=== PATIENT | male | born 1965 | race Hispanic/Latino ===

== ENCOUNTER 2025-02-17 17:30 | Emergency (ER) | payer OTHER ==
[~2025-02-17] VITALS: Ht 172.7 cm; Wt 95.0 kg
[2025-02-17] MEDS ORDERED: COZAAR100 MG PO (18:05)
[2025-02-17] MEDS ORDERED: AMLODIPINE BESYL5 MG PO (18:06)
[2025-02-17] MEDS ORDERED: HYDROCHLOROTH12.5 MG PO ×2 (18:08)
[2025-02-17] MEDS ORDERED: METOPROLOL TARTRATE 50 MG TAB PO ONE (19:15)
[2025-02-17 19:50] LABS: BASOPHILS 0.7 % (0.2-1.2); BLOOD/HGB, URINE NEGATIVE (Negative); EOSINOPHILS 4.3 % (0.8-7.0); KETONE, URINE SMALL (Negative); LEUK ESTERASE, URINE NEGATIVE (negative); LYMPHOCYTES 26.2 % (21.8-53.1); MCH 32.1 PG (25.7-32.2); MCHC 35.4 g/dL (32.3-36.5); MCV 90.5 fL (79.0-92.2); MONOCYTES 10.4 % (5.3-12.2); NEUTROPHILS 58.1 % (34.0-67.9); NITRITE, URINE NEGATIVE (negative); RBC 4.74 M/uL (4.63-6.08)
[2025-02-17 20:04] LABS: AMPHETAMINES, URINE NEGATIVE (NEGATIVE); BARBITURATES, URINE NEGATIVE (NEGATIVE); BENZODIAZEPINE, URINE NEGATIVE (NEGATIVE); CANNABINOID, URINE NEGATIVE (NEGATIVE); COCAINE, URINE POSITIVE (NEGATIVE); ECSTASY, URINE NEGATIVE (NEGATIVE); FENTANYL, URINE NEGATIVE (NEGATIVE); METHADONE, URINE NEGATIVE (NEGATIVE); OPIATES, URINE NEGATIVE (NEGATIVE); OXYCODONE, URINE NEGATIVE (NEGATIVE); PHENCYCLIDINE, URINE NEGATIVE (NEGATIVE)
[2025-02-17 20:17] LABS: ALT (SGPT) 37.0 U/L (14-59); AST (SGOT) 21.0 U/L (15-37); GLOMERULAR FILTRATION RATE,EST 101.0 mL/min (>60); PROTEIN, TOTAL 7.0 g/dL (6.4-8.2); TSH, 3RD GENERATION 1.267 uIU/mL (0.358-3.740); UREA NITROGEN 19.0 mg/dL (7-18)
[2025-02-17] MEDS ORDERED: KAPSPARGO SPRIN25 MG PO (21:08)
[2025-02-17] MEDS ORDERED: TOPROL XL25 MG PO (21:10)
[2025-02-17 21:27] VITALS: BP 162/104
--- NOTE | 2025-02-18 08:12 | EKG ---
[facility] [address] [facility] [place] [address] Signed Normal sinus rhythm Minimal voltage criteria for LVH, may be normal variant ( Jasper product ) Borderline ECG No previous ECGs available Confirmed by Randy Saldivar MD ([id number]) on 02/18/2025 8:12:24 AM Electronically Signed By: RANDY SALDIVAR MD 02/18/25811 PATIENT NAME: KOKI SLAUGHTERO Electrocardiogram DATE OF : 67 PHYSICIAN: RANDY SALDIVAR MD REPORT #: [id number] REPORT IS CONFIDENTIAL AND NOT TO BE RELEASED WITHOUT AUTHORIZATION
== END 2025-02-17 21:28 | disposition other institution, planned readmission (95) ==
LOC: ED 17:30
PROVIDERS: Internal Medicine
DX: I16.0 Hypertensive urgency (principal); F14.90 Cocaine use, unspecified, uncomplicated; Z88.0 Allergy status to penicillin; Z79.899 Other long term (current) drug therapy
CPT/HCPCS: 36415; 80053; 80307; 81003; 84443; 84484; 85025; 93005; 93010; 96374; 99285-25; J0360